=== PATIENT | male | born 1955 | race Caucasian/White ===

== ENCOUNTER 2017-09-10 13:47 | Inpatient (IN) | payer OTHER ==
[2017-09-10 15:56] VITALS: BMI 19.8
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
[2017-09-10] MEDS ORDERED: IBUPROFEN 400 MG TABLET (FP) PO PRN (19:17)
[2017-09-10] MEDS ORDERED: MAGNESIUM CITRATE 300 ML BOTTLE PO PRN (19:17)
[2017-09-10] MEDS ORDERED: NICOTINE POLACRILEX 2 MG GUM BC PRN (19:17)
[2017-09-10] MEDS ORDERED: MAGNESIUM HYDROX 2400MG/30ML ORAL SUSPENSION 30 ML CUP PO PRN (19:17)
[2017-09-10] MEDS ORDERED: MAG HYDROX/AL HYDROX/SIMETH 30 ML UNIT-DOSE CUP PO PRN (19:17)
[2017-09-10] MEDS ORDERED: P-EPHED 60MG/TRIPROLIDI 2.5MG TABLET PO PRN (19:17)
[2017-09-10] MEDS ORDERED: ACETAMINOPHEN 325 MG TABLET (FP) PO PRN (19:17)
[2017-09-10] MEDS ORDERED: hydrOXYzine PAMOATE 50 MG CAPSULE (FP) PO PRN (19:17)
[2017-09-10] MEDS ORDERED: MENTHOL/PHENOL 1 EACH UD MM PRN (19:17)
[2017-09-10] MEDS ORDERED: guaiFENesin/D-METHORPHAN HB 10 ML UNIT-DOSE CUPS PO PRN (19:17)
[2017-09-10] MEDS ORDERED: LOPERAMIDE HCL 2 MG CAPSULE PO PRN (19:17)
[2017-09-10] MEDS ORDERED: chlordiazePOXIDE HCL 25 MG CAPSULE PO PRN (19:17)
[2017-09-10] MEDS ORDERED: ALBUTEROL SO4 2.5/IPRATROPIUM 0.5 INH SOL 3 ML VIAL.NEB. NEB PRN (19:53)
[2017-09-10] MEDS ORDERED: chlordiazePOXIDE HCL 25 MG CAPSULE PO ONE (20:00)
[2017-09-10] MEDS: THIAMINE HCL 100 MG TABLET (FP) PO SCH (21:31)
[2017-09-10] MEDS ORDERED: MELATONIN 5 MG TABLETS PO PRN (22:00)
[2017-09-10] MEDS: chlordiazePOXIDE HCL 25 MG CAPSULE PO SCH (22:14)
[2017-09-10 23:03] LABS: URINE APPEARANCE CLEAR; URINE BILIRUBIN NEGATIVE (<2.0 mg/dL); URINE COLOR YELLOW; URINE GLUCOSE (UA) NEGATIVE (NEGATIVE); URINE KETONE TRACE (NEGATIVE); URINE LEUK ESTERASE NEGATIVE (NEGATIVE); URINE NITRITE NEGATIVE (NEGATIVE); URINE PROTEIN NEGATIVE (NEGATIVE); URINE UROBILINOGEN 4.0 E.U/dl mg/dL (0.2-1.0)
[2017-09-11] MEDS: chlordiazePOXIDE HCL 25 MG CAPSULE PO SCH ×4 (05:50→22:35)
[2017-09-11] MEDS ORDERED: METHADONE HCL 10 MG TABLET PO SCH (08:45)
[2017-09-11] MEDS ORDERED: METHADONE HCL 40 MG DISPERSABLE TABLET ONE (09:51)
[2017-09-11] MEDS ORDERED: METHADONE HCL 10 MG TABLET ONE (09:51)
[2017-09-11] MEDS: METHADONE 40 MG, METHADONE 30 MG PO SCH (10:03)
[2017-09-11] MEDS: PRENATAL VITAMINS W/ FOLIC ACID TABLET (FP) PO SCH (10:03)
[2017-09-11] MEDS: NICOTINE 14 MG/24 HOURS TOPICAL PATCH TD SCH (10:05)
[2017-09-11 10:30] LABS: HEMATOCRIT 38.1 % (35.4-49); HEMOGLOBIN 12.5 GM/dL (11.7-16.9); MCH 29.6 pg (25.7-33.7); MCHC 32.8 g/dl (32.0-35.9); MEAN CELL VOLUME 90.3 fl (80-96); PLATELET COUNT 165 K/MM3 (134-434); RBC 4.22 M/mm3 (4.00-5.60)
[2017-09-11 10:48] LABS: CHLORIDE 110 mmol/L (98-107); POTASSIUM 4.2 mmol/L (3.5-5.1); SODIUM 145 mmol/L (136-145)
[2017-09-11 11:14] LABS: ALBUMIN 2.9 g/dl (3.4-5.0); ALK PHOS 86 U/L (45-117); ANION GAP 3 (8-16); BILIRUBIN,TOTAL 0.3 mg/dL (0.2-1.0); BLOOD UREA NITROGEN 19 mg/dL (7-18); CALCIUM 8.1 mg/dL (8.5-10.1); CO2 32 mmol/L (21-32); CREATININE 0.8 mg/dL (0.7-1.3); GLUCOSE,RANDOM 111 mg/dL (74-106); SGOT/AST 15 U/L (15-37); SGPT/ALT 29 U/L (12-78); TOT PROT 5.5 g/dl (6.4-8.2)
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
--- NOTE | 2017-09-11 13:28 | EKG ---
Test Reason : Blood Pressure : / mmHG Vent. Rate : 051 BPM Atrial Rate : 051 BPM P-R Int : 134 ms QRS Dur : 090 ms QT Int : 454 ms P-R-T Axes : 073 046 062 degrees QTc Int : 418 ms SINUS BRADYCARDIA OTHERWISE NORMAL ECG NO PREVIOUS ECGS AVAILABLE Confirmed by AIDEE HARKINS, GREGORIO ([id number]) on 09/11/2017 1:28:08 PM Referred By: Confirmed By:GREGORIO HOSKINS MD
--- NOTE | 2017-09-11 15:19 | PN ---
[facility] CIWA - CIWA Score Nausea/Vomitin-No Nausea/No Vomiting Muscle Tremors: None Anxiety: 3 Agitation: 2 Paroxysmal Sweats: 3 Orientation: 0-Oriented Tacttile Disturbances: 3-Moderate Itch/Numb/Burn Auditory Disturbances: 3-Moderate Harsh/Frighten Visual Disturbances: 2-Mild Sensitivity Headache: 0-None Present CIWA-Ar Total Score: 16 BHS Progress Note (SOAP) Subjective: Sweating, Stomach Cramping, Fatigue, Body Aches. Objective: PATIENT A & O X 3, OBSERVED AMBULATING ON UNIT. NO ACUTE DISTRESS. 09/11/17 15:18 Vital Signs Temperature 98.2 F 09/11/17 14:26 Pulse Rate 70 09/11/17 14:26 Respiratory Rate 20 09/11/17 14:26 Blood Pressure 140/70 09/11/17 14:26 O2 Sat by Pulse Oximetry (%) Laboratory Tests 09/10/17 09/11/17 09/11/17 22:18 07:30 07:30 WBC 5.0 RBC 4.22 Hgb 12.5 Hct 38.1 MCV 90.3 MCH 29.6 MCHC 32.8 RDW 14.0 Plt Count 165 MPV 9.0 Sodium 145 Potassium 4.2 Chloride 110 H Carbon Dioxide 32 Anion Gap 3 L BUN 19 H D Creatinine 0.8 Creat Clearance w eGFR > 60 Random Glucose 111 H Calcium 8.1 L Total Bilirubin 0.3 D AST 15 ALT 29 Alkaline Phosphatase 86 Total Protein 5.5 L Albumin 2.9 L Urine Color Yellow Urine Appearance Clear Urine pH 5.0 D Ur Specific [place] 1.028 Urine Protein Negative Urine Glucose (UA) Negative Urine Ketones Trace H Urine Blood Negative Urine Nitrite Negative Urine Bilirubin Negative Urine Urobilinogen 4.0 e.u/dl Ur Leukocyte Esterase Negative RPR Titer HIV 1&2 Antibody Screen HIV P24 Antigen 09/11/17 09/11/17 07:30 07:30 WBC RBC Hgb Hct MCV MCH MCHC RDW Plt Count MPV Sodium Potassium Chloride Carbon Dioxide Anion Gap BUN Creatinine Creat Clearance w eGFR Random Glucose Calcium Total Bilirubin AST ALT Alkaline Phosphatase Total Protein Albumin Urine Color Urine Appearance Urine pH Ur Specific [place] Urine Protein Urine Glucose (UA) Urine Ketones Urine Blood Urine Nitrite Urine Bilirubin Urine Urobilinogen Ur Leukocyte Esterase RPR Titer Nonreactive HIV 1&2 Antibody Screen Negative HIV P24 Antigen Negative LABS NOTED. Assessment: 09/11/17 15:18 WITHDRAWAL SYMPTOMS. Plan: CONTINUE DETOX. INCREASE DAILY PO FLUID INTAKE.
[2017-09-11] MEDS: THIAMINE HCL 100 MG TABLET (FP) PO SCH (22:35)
[2017-09-12] MEDS ORDERED: METHADONE HCL 10 MG TABLET ONE (03:42)
[2017-09-12] MEDS ORDERED: METHADONE HCL 40 MG DISPERSABLE TABLET ONE (03:43)
[2017-09-12] MEDS: chlordiazePOXIDE HCL 25 MG CAPSULE PO SCH ×3 (05:48→18:15)
[2017-09-12] MEDS: METHADONE 40 MG, METHADONE 30 MG PO SCH (05:48)
[2017-09-12] MEDS: NICOTINE 14 MG/24 HOURS TOPICAL PATCH TD SCH (10:47)
[2017-09-12] MEDS: PRENATAL VITAMINS W/ FOLIC ACID TABLET (FP) PO SCH (10:47)
--- NOTE | 2017-09-12 13:42 | PN ---
[facility] CIWA - CIWA Score Nausea/Vomitin-No Nausea/No Vomiting Muscle Tremors: None Anxiety: 4-Mod. Anxious/Guarded Agitation: 4-Moderately Restless Paroxysmal Sweats: No Perspiration Orientation: 0-Oriented Tacttile Disturbances: 2-Mild Itch/Numbness/Burn Auditory Disturbances: 1-Very Mild Visual Disturbances: 1-Very Mild Sensitivity Headache: 0-None Present CIWA-Ar Total Score: 12 S Progress Note (SOAP) Subjective: Anxious, Interrupted Sleep, Fatigue. Objective: PATIENT A & O X 3, OBSERVED AMBULATING ON UNIT. NO ACUTE DISTRESS. 09/12/17 13:37 Vital Signs Temperature 96.5 F L 09/12/17 09:29 Pulse Rate 71 09/12/17 10:00 Respiratory Rate 16 09/12/17 09:29 Blood Pressure 104/64 09/12/17 10:00 O2 Sat by Pulse Oximetry (%) Laboratory Tests 09/10/17 09/11/17 09/11/17 22:18 07:30 07:30 WBC 5.0 RBC 4.22 Hgb 12.5 Hct 38.1 MCV 90.3 MCH 29.6 MCHC 32.8 RDW 14.0 Plt Count 165 MPV 9.0 Sodium 145 Potassium 4.2 Chloride 110 H Carbon Dioxide 32 Anion Gap 3 L BUN 19 H D Creatinine 0.8 Creat Clearance w eGFR > 60 Random Glucose 111 H Calcium 8.1 L Total Bilirubin 0.3 D AST 15 ALT 29 Alkaline Phosphatase 86 Total Protein 5.5 L Albumin 2.9 L Urine Color Yellow Urine Appearance Clear Urine pH 5.0 D Ur Specific [place] 1.028 Urine Protein Negative Urine Glucose (UA) Negative Urine Ketones Trace H Urine Blood Negative Urine Nitrite Negative Urine Bilirubin Negative Urine Urobilinogen 4.0 e.u/dl Ur Leukocyte Esterase Negative RPR Titer HIV 1&2 Antibody Screen HIV P24 Antigen 09/11/17 09/11/17 07:30 07:30 WBC RBC Hgb Hct MCV MCH MCHC RDW Plt Count MPV Sodium Potassium Chloride Carbon Dioxide Anion Gap BUN Creatinine Creat Clearance w eGFR Random Glucose Calcium Total Bilirubin AST ALT Alkaline Phosphatase Total Protein Albumin Urine Color Urine Appearance Urine pH Ur Specific [place] Urine Protein Urine Glucose (UA) Urine Ketones Urine Blood Urine Nitrite Urine Bilirubin Urine Urobilinogen Ur Leukocyte Esterase RPR Titer Nonreactive HIV 1&2 Antibody Screen Negative HIV P24 Antigen Negative LABS NOTED. Assessment: 09/12/17 13:40 WITHDRAWAL SYMPTOMS. Plan: CONTINUE DETOX.
[2017-09-12] MEDS: THIAMINE HCL 100 MG TABLET (FP) PO SCH (22:20)
[2017-09-12] MEDS: chlordiazePOXIDE 5 MG CAPSULE PO SCH (22:20)
[2017-09-13] MEDS ORDERED: METHADONE HCL 10 MG TABLET ONE (04:44)
[2017-09-13] MEDS ORDERED: METHADONE HCL 40 MG DISPERSABLE TABLET ONE (04:45)
[2017-09-13] MEDS: chlordiazePOXIDE 5 MG CAPSULE PO SCH ×2 (06:43→10:29)
[2017-09-13] MEDS: METHADONE 40 MG, METHADONE 30 MG PO SCH (06:44)
[2017-09-13 09:12] VITALS: BP 121/71; PULSE 82; TEMP 98.4
[2017-09-13] MEDS: PRENATAL VITAMINS W/ FOLIC ACID TABLET (FP) PO SCH (10:29)
[2017-09-13] MEDS: NICOTINE 14 MG/24 HOURS TOPICAL PATCH TD SCH (10:29)
--- NOTE | 2017-09-13 13:25 | PN ---
BHS Progress Note (SOAP) Subjective: Patient denies current Detox symptoms and reports that he is feeling well overall. Objective: PATIENT A & O X 3, OBSERVED AMBULATING ON UNIT. NO ACUTE DISTRESS. 09/13/17 13:23 Vital Signs Temperature 98.4 F 09/13/17 09:11 Pulse Rate 82 09/13/17 09:11 Respiratory Rate 18 09/13/17 09:11 Blood Pressure 121/71 09/13/17 09:11 O2 Sat by Pulse Oximetry (%) Laboratory Tests 09/10/17 09/11/17 09/11/17 22:18 07:30 07:30 WBC 5.0 RBC 4.22 Hgb 12.5 Hct 38.1 MCV 90.3 MCH 29.6 MCHC 32.8 RDW 14.0 Plt Count 165 MPV 9.0 Sodium 145 Potassium 4.2 Chloride 110 H Carbon Dioxide 32 Anion Gap 3 L BUN 19 H D Creatinine 0.8 Creat Clearance w eGFR > 60 Random Glucose 111 H Calcium 8.1 L Total Bilirubin 0.3 D AST 15 ALT 29 Alkaline Phosphatase 86 Total Protein 5.5 L Albumin 2.9 L Urine Color Yellow Urine Appearance Clear Urine pH 5.0 D Ur Specific [place] 1.028 Urine Protein Negative Urine Glucose (UA) Negative Urine Ketones Trace H Urine Blood Negative Urine Nitrite Negative Urine Bilirubin Negative Urine Urobilinogen 4.0 e.u/dl Ur Leukocyte Esterase Negative RPR Titer HIV 1&2 Antibody Screen HIV P24 Antigen 09/11/17 09/11/17 07:30 07:30 WBC RBC Hgb Hct MCV MCH MCHC RDW Plt Count MPV Sodium Potassium Chloride Carbon Dioxide Anion Gap BUN Creatinine Creat Clearance w eGFR Random Glucose Calcium Total Bilirubin AST ALT Alkaline Phosphatase Total Protein Albumin Urine Color Urine Appearance Urine pH Ur Specific [place] Urine Protein Urine Glucose (UA) Urine Ketones Urine Blood Urine Nitrite Urine Bilirubin Urine Urobilinogen Ur Leukocyte Esterase RPR Titer Nonreactive HIV 1&2 Antibody Screen Negative HIV P24 Antigen Negative LABS NOTED Assessment: 09/13/17 13:24 COMPLETION OF DETOX REGIMEN. Plan: PATIENT TO BE DISCHARGED FROM DETOX UNIT TODAY.
--- NOTE | 2017-09-13 13:32 | DS ---
[facility] Detox Discharge Summary Admission Date: 09/10/17 Discharge Date: 09/13/17 - History Present History: Alcohol Dependence, Cocaine Dependence, Opioid Dependence, Sedative Dependence, MMTP Additional Comments: PATIENT DENIES CURRENT DETOX SYMPTOMS AND REPORTS THAT HE FEELS WELL OVERALL AT TIME OF DISCHARGE. PATIENT ADVISED TO CONSIDER LOCAL 12-STEP / NA / AA OUTPATIENT SUPPORT GROUPS FOR AFTERCARE. PATIENT WAS DISCHARGED FROM DETOX UNIT IN STABLE MEDICAL CONDITION. Pertinent Past History: GERD, History of Anemia, History of Asthma, History of Depression, History of H.Pylori infection, History of elevated Ammonia level, History of Bipolar Disorder, MMTP, History of Depression, Weight Decreased. - Physical Exam Results Vital Signs: Vital Signs Temperature 98.4 F 09/13/17 09:11 Pulse Rate 82 09/13/17 09:11 Respiratory Rate 18 09/13/17 09:11 Blood Pressure 121/71 09/13/17 09:11 O2 Sat by Pulse Oximetry (%) Pertinent Admission Physical Exam Findings: WITHDRAWAL SYMPTOMS. Laboratory Tests 09/10/17 09/11/17 09/11/17 22:18 07:30 07:30 WBC 5.0 RBC 4.22 Hgb 12.5 Hct 38.1 MCV 90.3 MCH 29.6 MCHC 32.8 RDW 14.0 Plt Count 165 MPV 9.0 Sodium 145 Potassium 4.2 Chloride 110 H Carbon Dioxide 32 Anion Gap 3 L BUN 19 H D Creatinine 0.8 Creat Clearance w eGFR > 60 Random Glucose 111 H Calcium 8.1 L Total Bilirubin 0.3 D AST 15 ALT 29 Alkaline Phosphatase 86 Total Protein 5.5 L Albumin 2.9 L Urine Color Yellow Urine Appearance Clear Urine pH 5.0 D Ur Specific [place] 1.028 Urine Protein Negative Urine Glucose (UA) Negative Urine Ketones Trace H Urine Blood Negative Urine Nitrite Negative Urine Bilirubin Negative Urine Urobilinogen 4.0 e.u/dl Ur Leukocyte Esterase Negative RPR Titer HIV 1&2 Antibody Screen HIV P24 Antigen 09/11/17 09/11/17 07:30 07:30 WBC RBC Hgb Hct MCV MCH MCHC RDW Plt Count MPV Sodium Potassium Chloride Carbon Dioxide Anion Gap BUN Creatinine Creat Clearance w eGFR Random Glucose Calcium Total Bilirubin AST ALT Alkaline Phosphatase Total Protein Albumin Urine Color Urine Appearance Urine pH Ur Specific [place] Urine Protein Urine Glucose (UA) Urine Ketones Urine Blood Urine Nitrite Urine Bilirubin Urine Urobilinogen Ur Leukocyte Esterase RPR Titer Nonreactive HIV 1&2 Antibody Screen Negative HIV P24 Antigen Negative LABS NOTED. - Treatment Hospital Course: Detox Protocol Followed, Detoxed Safely, Responded well, Discharged Condition Good Patient has Accepted a Rehab Referral to: PT ADVISED TO CONSIDER LOCAL 12-STEP/ NA/AA OP SUPPORT GROUPS FOR AFTERCARE. - Medication Discharge Medications: Ambulatory Orders NK [No Known Home Medication] 05/06/13 - Diagnosis (1) Cocaine dependence Current Visit: Yes Status: Acute Qualifiers: Substance use status: uncomplicated Qualified Code(s): F14.20 - Cocaine dependence, uncomplicated (2) Depression Current Visit: Yes Status: Acute Qualifiers: Depression Type: unspecified Qualified Code(s): F32.9 - Major depressive disorder, single episode, unspecified (3) GERD (gastroesophageal reflux disease) Current Visit: Yes Status: Acute Qualifiers: Esophagitis presence: without esophagitis Qualified Code(s): K21.9 - Gastro -esophageal reflux disease without esophagitis (4) Opioid dependence on agonist therapy Current Visit: Yes Status: Acute (5) Sedative hypnotic or anxiolytic dependence Current Visit: Yes Status: Acute (6) Weight decreased Current Visit: Yes Status: Acute (7) Wheezing Current Visit: Yes Status: Acute - AMA Did Patient Leave Against Medical Advice: No
[2017-09-13] MEDS ORDERED: chlordiazePOXIDE HCL 10 MG CAPSULE PO SCH (23:00)
== END 2017-09-13 13:15 | disposition home or self-care (01) | DRG 773 ==
LOC: YASAS 13:47 → Y3N 19:35
PROVIDERS: ADMIT Internal Medicine; ATTEND Internal Medicine
PROC: HZ2ZZZZ Detoxification Services for Substance Abuse Treatment (ICD-10-PCS; principal; 2017-09-10)
DX: F11.23 Opioid dependence with withdrawal (principal); F13.230 Sedative, hypnotic or anxiolytic dependence with withdrawal, uncomplicated; F10.230 Alcohol dependence with withdrawal, uncomplicated; F14.20 Cocaine dependence, uncomplicated; F32.9 Major depressive disorder, single episode, unspecified; K21.9 Gastro-esophageal reflux disease without esophagitis; R06.2 Wheezing; R63.4 Abnormal weight loss; Z68.1 Body mass index [BMI] 19.9 or less, adult; Z87.19 Personal history of other diseases of the digestive system; Z86.2 Personal history of diseases of the blood and blood-forming organs and certain disorders involving the immune mechanism
CPT/HCPCS: 36415; 80053; 81003; 85027; 86593; 87389; 93005; 93010

== ENCOUNTER 2022-01-03 10:27 | Inpatient (IN) | payer OTHER ==
[2022-01-03 10:58] VITALS: BMI 21.7
[2022-01-03] MEDS ORDERED: MAGNESIUM HYDROX 2400MG/30ML ORAL SUSPENSION 30 ML CUP PO PRN (11:46)
[2022-01-03] MEDS ORDERED: BENZOCAINE/MENTHOL (CHLORASEPTIC ) LOZENGE MM PRN (11:46)
[2022-01-03] MEDS ORDERED: DICYCLOMINE HCL 10 MG CAPSULE PO PRN (11:46)
[2022-01-03] MEDS ORDERED: ONDANSETRON *ODT* 4 MG TABLET SL PRN (11:46)
[2022-01-03] MEDS ORDERED: NALOXONE HCL (KLOXXADO) 8 MG SPRAY NS PRN (11:46)
[2022-01-03] MEDS ORDERED: METHOCARBAMOL 500 MG TABLET PO PRN (11:46)
[2022-01-03] MEDS ORDERED: MAG HYDROX/AL HYDROX/SIMETH 30 ML UNIT-DOSE CUP PO PRN (11:46)
[2022-01-03] MEDS ORDERED: NICOTINE 10 MG CARTRIDGE (INHALER) IH PRN (11:46)
[2022-01-03] MEDS ORDERED: IBUPROFEN 600 MG TABLET (FP) PO PRN (11:46)
[2022-01-03] MEDS ORDERED: chlordiazePOXIDE HCL 25 MG CAPSULE PO PRN (11:46)
[2022-01-03] MEDS ORDERED: IBUPROFEN 400 MG TABLET (FP) PO PRN (11:46)
[2022-01-03] MEDS ORDERED: BISMUTH SUBSALICYLATE 262 MG/15 ML BTL PO PRN (11:46)
[2022-01-03] MEDS ORDERED: MAGNESIUM CITRATE 300 ML BOTTLE PO PRN (11:46)
[2022-01-03] MEDS ORDERED: ACETAMINOPHEN 325 MG TABLET (FP) PO PRN ×2 (11:46)
[2022-01-03] MEDS ORDERED: LOPERAMIDE HCL 2 MG CAPSULE PO PRN (11:46)
[2022-01-03] MEDS: hydrOXYzine PAMOATE 25 MG CAPSULE (FP) PO SCH ×3 (13:14→22:47)
[2022-01-03] MEDS: NICOTINE 7 MG/24 HOURS TOPICAL PATCH TD SCH (13:15)
[2022-01-03 15:01] LABS: HEMATOCRIT 36.8 % (35.4-49); HEMOGLOBIN 11.8 GM/dL (11.7-16.9); MCH 29.1 pg (25.7-33.7); MCHC 32.1 g/dl (32.0-35.9); MEAN CELL VOLUME 90.7 fl (80-96); MEAN PLT VOLUME 8.8 fl (7.5-11.1); PLATELET COUNT 210 10^3/uL (134-434); RBC 4.06 M/mm3 (4.00-5.60); RDW 14.1 % (11.9-15.9)
[2022-01-03 15:09] LABS: BLOOD UREA NITROGEN 17.6 mg/dL (7-18); CALCIUM 9.3 mg/dL (8.5-10.1)
[2022-01-03 15:10] LABS: ALBUMIN 3.7 g/dl (3.4-5.0)
[2022-01-03 15:12] LABS: CREATININE 0.9 mg/dL (0.55-1.3)
[2022-01-03 15:13] LABS: BILIRUBIN,TOTAL 0.4 mg/dL (0.2-1)
[2022-01-03 15:21] LABS: TOT PROT 6.6 g/dl (6.4-8.2)
[2022-01-03] MEDS: chlordiazePOXIDE HCL 25 MG CAPSULE PO SCH ×2 (17:56→22:27)
[2022-01-03] MEDS: THIAMINE HCL 100 MG TABLET (FP) PO SCH (22:27)
[2022-01-03] MEDS: MELATONIN 5 MG TABLETS PO SCH (22:29)
[2022-01-04] MEDS: hydrOXYzine PAMOATE 25 MG CAPSULE (FP) PO SCH ×5 (06:00→23:17)
[2022-01-04] MEDS: chlordiazePOXIDE HCL 25 MG CAPSULE PO SCH ×4 (06:00→23:18)
[2022-01-04] MEDS ORDERED: methaDONE HCL 10 MG TABLET PO SCH (08:45)
[2022-01-04] MEDS: methaDONE 40 MG, methaDONE 10 MG PO SCH (09:38)
[2022-01-04] MEDS: PRENATAL VITAMINS W/ FOLIC ACID TABLET (FP) PO SCH (09:40)
[2022-01-04] MEDS: NICOTINE 7 MG/24 HOURS TOPICAL PATCH TD SCH (09:41)
[2022-01-04] MEDS: THIAMINE HCL 100 MG TABLET (FP) PO SCH (23:17)
[2022-01-04] MEDS: MELATONIN 5 MG TABLETS PO SCH (23:19)
[2022-01-05] MEDS: methaDONE 40 MG, methaDONE 10 MG PO SCH (06:01)
[2022-01-05] MEDS: hydrOXYzine PAMOATE 25 MG CAPSULE (FP) PO SCH ×5 (06:02→22:46)
[2022-01-05] MEDS: chlordiazePOXIDE HCL 25 MG CAPSULE PO SCH ×4 (06:02→22:48)
[2022-01-05] MEDS: PRENATAL VITAMINS W/ FOLIC ACID TABLET (FP) PO SCH (11:59)
[2022-01-05] MEDS: NICOTINE 7 MG/24 HOURS TOPICAL PATCH TD SCH (12:00)
[2022-01-05] MEDS: THIAMINE HCL 100 MG TABLET (FP) PO SCH (22:46)
[2022-01-05] MEDS: MELATONIN 5 MG TABLETS PO SCH (22:46)
[2022-01-06] MEDS ORDERED: chlordiazePOXIDE HCL 10 MG CAPSULE PO PRN
[2022-01-06] MEDS: methaDONE 40 MG, methaDONE 10 MG PO SCH (05:33)
[2022-01-06] MEDS: chlordiazePOXIDE HCL 10 MG CAPSULE PO SCH ×4 (05:34→22:42)
[2022-01-06] MEDS: hydrOXYzine PAMOATE 25 MG CAPSULE (FP) PO SCH ×5 (05:34→22:42)
[2022-01-06] MEDS: NICOTINE 7 MG/24 HOURS TOPICAL PATCH TD SCH (10:49)
[2022-01-06] MEDS: PRENATAL VITAMINS W/ FOLIC ACID TABLET (FP) PO SCH (10:49)
[2022-01-06] MEDS: MELATONIN 5 MG TABLETS PO SCH (22:42)
[2022-01-06] MEDS: THIAMINE HCL 100 MG TABLET (FP) PO SCH (22:42)
[2022-01-07] MEDS ORDERED: chlordiazePOXIDE HCL 10 MG CAPSULE PO SCH (05:00)
[2022-01-07] MEDS: methaDONE 40 MG, methaDONE 10 MG PO SCH (05:40)
[2022-01-07] MEDS: hydrOXYzine PAMOATE 25 MG CAPSULE (FP) PO SCH (05:40)
[2022-01-07 09:08] VITALS: BP 122/71; PULSE 84; RESP 18; TEMP 97.3
[2022-01-08] MEDS ORDERED: chlordiazePOXIDE HCL 10 MG CAPSULE PO ONE (05:00)
== END 2022-01-07 09:33 | disposition home or self-care (01) | DRG 773 ==
LOC: YASAS 10:27 → Y6N 12:10
PROVIDERS: ADMIT Allergy & Immunology; ATTEND Surgery
PROC: HZ2ZZZZ Detoxification Services for Substance Abuse Treatment (ICD-10-PCS; principal; 2022-01-03)
DX: F10.230 Alcohol dependence with withdrawal, uncomplicated (principal); F11.20 Opioid dependence, uncomplicated; F14.20 Cocaine dependence, uncomplicated; F17.210 Nicotine dependence, cigarettes, uncomplicated; F31.9 Bipolar disorder, unspecified; F41.9 Anxiety disorder, unspecified; F32.A Depression, unspecified; Z96.641 Presence of right artificial hip joint; R63.4 Abnormal weight loss; Z68.21 Body mass index [BMI] 21.0-21.9, adult
CPT/HCPCS: 36415; 80053; 85027; 86780; 93005; 93010; C9803-CS; U0003; U0005